=== PATIENT | female | born 1970 | race Caucasian/White ===

== ENCOUNTER 2025-03-06 08:14 | Emergency (ER) | payer BC, SELFPAY ==
[2025-03-06 08:18] VITALS: BP 164/103
[2025-03-06 08:31] VITALS: BP 127/93
--- NOTE | 2025-03-06 08:31 | ED.GENMED ---
History of Present Illness
General
Chief Complaint: Cardiac Symptoms
Time Seen by Provider: 03/06/25 08:31
History of Present Illness
History of Present Illness:
FOCUSED PAST MEDICAL HISTORY
- Hyperthyroidism
REVIEW OF OLD RECORDS
- No old records available for review in [facility]
Note:
CHIEF COMPLAINT(S)
Palpitations and elevated heart rate over the last four days.
HISTORY OF PRESENT ILLNESS
The patient is a 54-year-old female with a history of thyroid dysfunction currently on levothyroxine therapy, presenting with palpitations and feeling tachycardic intermittently for the past four days. She describes her condition as experiencing a
rapid heart rate of 140-160 beats per minute, even while at rest, which compelled her to seek evaluation. The patient is jazmyne-menopausal and has experienced symptoms such as hot flashes and night sweats but initially attributed the palpitations to
these menopausal symptoms. There is no notable chest tightness or pressure accompanying these episodes, and she denies recent caffeine intake. The patient has been on levothyroxine previously for thyroid dysfunction, noting occasional swings between
hyper and hypothyroid states. She does not take any medication currently for the heart rate, though she mentioned a past prescription for a beta-chelly when she was younger. She is not currently experiencing significant respiratory distress. An
electrocardiogram performed earlier indicated a sinus rhythm, although with slightly elevated rates.
PAST MEDICAL AND SURIGICAL HISTORY
The patient has a known history of thyroid dysfunction.
MEDICATIONS
Levothyroxine (Synthroid) for thyroid management.
REVIEW OF SYSTEMS
- Cardiovascular: Episodes of rapid heart rate at rest (140-160 bpm).
- General: Experiences hot flashes and night sweats, attributed to jazmnye-menopause.
- Respiratory: No dyspnea or difficulty breathing noted.
- Neurological: No signs of anxiety or stress-related triggers identified for heart rate elevation.
PHYSICAL EXAM
General: Alert, no acute distress.
Skin: Warm, dry.
Head: Normocephalic, atraumatic.
Neck: Supple, trachea midline.
Eyes, Ears, Nose, Mouth, and Throat: Oral mucosa moist.
Cardiovascular: Normal peripheral perfusion, No edema. Borderline tachycardic.
Respiratory: Respirations are non-labored.
Gastrointestinal: Abdomen nondistended.
Back: Normal range of motion, Normal alignment.
Musculoskeletal: Normal range of motion, normal strength.
Neurological: Alert and oriented to person, place, time, and situation, No focal neurological deficit observed.
Psychiatric: Cooperative, appropriate mood & affect.
PROBLEM LIST
Acute Problems:
- Palpitations
- Elevated heart rate
Chronic Problems:
- Thyroid dysfunction
PLAN
- Monitor the patients heart rate and rhythm while at the facility.
- Obtain blood work to evaluate thyroid function as a potential contributing factor to the elevated heart rate.
- Recommend keeping the patient on cardiac monitoring for further observation.
- Discuss the potential option of prescribing a beta-chelly if the symptoms persist or worsen, though the patient prefers avoiding additional medication if feasible.
DIFFERENTIAL DIAGNOSIS
The Differential Diagnosis includes, in no particular order and is not limited to:
- Thyrotoxicosis
- Atrial fibrillation or flutter
- Supraventricular tachycardia
- Anxiety disorder
- Menopausal symptoms exacerbation
- Pheochromocytoma
- Electrolyte imbalance
- Mitral valve prolapse
- Primary hypersensitivity syndrome
- Subclinical hyperthyroidism
EKG
- Sinus 106, no acute ST abnormality, no old to compare
LABS
- CBC and chemistries unremarkable, TSH normal
UPDATE
- Offered and consider beta-blockade however patient declines at this time
SUMMARY OF ENCOUNTER
The patient, a 54-year-old female with a history of thyroid dysfunction managing with levothyroxine, visited the emergency department with complaints of palpitations and elevated heart rate over the last four days. The patient reported intermittent
episodes with heart rates between 140-160 bpm at rest. She is jazmyne-menopausal and initially attributed symptoms to menopausal changes. No significant chest tightness, pressure, or recent caffeine intake. She previously had a prescription for a
beta-chelly but is not currently taking it. An ECG showed a sinus rhythm with slightly elevated heart rates. Blood tests indicated normal electrolyte levels and thyroid function (TSH was 1.84, within the normal range). Observations showed normal
sinus rhythm heart rate is 90s.
PLAN
The patient was advised that, although palpitations occur, these are not alarming based on current observations. Consideration to place the patient on medication to slow heart rate was discussed but not pursued due to potential effects on already
optimal blood pressure. It was recommended for the patient to consider consulting a cake froster for further evaluation. They were informed that the symptoms do not indicate an immediate cardiac event such as a heart attack, given the absence of
chest pain or pressure. Patient was stable and given the contact information for a cake froster for follow-up.
PATIENT EDUCATION AND COUNSELING
The patient was reassured about the normal findings of her blood work and ECG. She was informed about the nature of her palpitations, potential management strategies, and the importance of follow-up with a color specialist.
FOLLOW-UP INSTRUCTIONS
The patient was instructed to schedule a follow-up with a cake froster for further evaluation of her cardiac symptoms.
MEDICATION RECONCILIATION
No new medications were prescribed during this encounter. The patient is currently on levothyroxine for thyroid management.
MEDICAL DECISION MAKING
- Number and Complexity of Problems Addressed: Chronic conditions affecting care include thyroid dysfunction. Differential diagnoses considered were thyrotoxicosis, supraventricular tachycardia, anxiety disorder, menopause-related symptoms, and
subclinical hyperthyroidism.
- Data:
Category 1:
Reviewed patients lab results, which revealed normal electrolyte levels and thyroid function. ECG showed sinus rhythm with some extra beats but no significant arrhythmias.
Category 2:
Independent review of ECG showed normal sinus rhythm.
Category 3:
No specific discussion with other healthcare providers recorded during this encounter.
-Risk:
Prescription medication to lower heart rate was considered but not prescribed due to the patients stable condition and potential impact on blood pressure.
DIAGNOSIS
1. Palpitations - R00.2
2. Sinus Tachycardia - R00.0
3. Jazmyne-menopausal Symptoms - N95.1
Repeat blood pressure with systolic of 160 without intervention
Phy Exam
Physical Exam
Physical Exam:
See HPI.
Course
Orders/Labs/Results
Orders:
Orders
03/06/25 08:17
Electrocardiogram (*1) Urgent
Reason for Study: Palpitations
EKG- Treatment ONCE
03/06/25 08:44
Complete Blood Count/With Diff Urgent
Comprehensive Metabolic Panel Urgent
Magnesium Urgent
TSH Reflex To Free T4 Urgent
Abnormal Lab Results
03/06/25
08:44
Eosinophils % 10.5 H %
(0-6)
Glucose 105 H mg/dl
(70-99)
03/06/25 08:44
03/06/25 08:44
Vital Signs
Initial and Last Documented VS:
Initial Vital Signs
Temp Pulse Resp BP Pulse Ox
36.9 C 132 20 164/103 99
03/06/25 08:18 03/06/25 08:18 03/06/25 08:18 03/06/25 08:18 03/06/25 08:18
Last Documented Vital Signs
Temp Pulse Resp BP Pulse Ox
36.9 C 113 10 127/93 99
03/06/25 08:18 03/06/25 08:31 03/06/25 08:31 03/06/25 08:31 03/06/25 08:32
*Pulse Oximetry
SaO2: 99
Oxygen Mode of Delivery: Room air
Patient hypoxic: no
*Critical Care Note
Total Time (30-74mins, 75-104mins- exclusive of procedures): Not Applicable
ED Attending Note
-
Portions of this chart may have been created with voice recognition software.� Occasional wrong word or��sound alike� substitutions may have occurred due to the inherent limitations of voice recognition software.
Discharge Plan
Departure
Patient Disposition: Home (Routine Discharge)
Date of Disposition: 03/06/25
Time of Disposition: 10:03
Patient with high blood pressure during this ER visit?: Yes
Discharge Problem:
Palpitations
Instructions: Palpitations - ED (DC), BLOOD PRESSURE
Referrals:
Manny Vicente MD [Active, Cardiology]
Eileen Bryan DO [Family Provider]
Activity Restrictions/Additional Instructions:
Basic blood work including thyroid testing is all normal. Your EKG is normal. I recommend a follow-up with a cake froster such as Dr. Vicente. Return here if worse or concerns.
Interventions
Interventions:
*Risk Screen - Suicide Last Done: 03/06/25 08:18
*General Assessment Last Done: 03/06/25 09:20
*Neglect/Abuse Screening Last Done: 03/06/25 08:24
*ED- Fall Risk Assessment Last Done: 03/06/25 09:20
*ED COVID-19 Vaccine History Last Done: 03/06/25 09:20
*ED Influenza Vaccine History Last Done: 03/06/25 09:20
ED- Pulmonary Assessment Last Done: 03/06/25 09:20
ED- Cardiac Assessment Last Done: 03/06/25 09:20
Discharge Date and Time
Print Language: VIET[place]ESE
[2025-03-06 08:51] LABS: Hematocrit 41.8 % (37.0-47.0); Hemoglobin 14.0 g/dL (12.0-16.0); Mean Corp Hgb Conc. 33.5 g/dL (33.0-37.0); Mean Corpuscular Volume 92.1 fL (81.0-99.0); Nucleated Red Blood Cells % 0 %; Platelet Count 243 10^3/uL (130-400); Red Cell Dist. Width 12.8 % (11.5-14.5)
[2025-03-06 09:00] VITALS: BP 115/92
[2025-03-06 09:04] LABS: ALT (SGPT) 29 U/L (0-35); AST (SGOT) 23 U/L (14-36); Albumin 5.0 g/dl (3.5-5.0); Alkaline Phosphatase 42 U/L (38-126); Blood Urea Nitrogen 15 mg/dl (7-17); Calcium 9.9 mg/dl (8.4-10.2); Carbon Dioxide 28 mmol/L (22-30); Chloride 106 mmol/L (98-107); Glucose 105 mg/dl (70-99); Magnesium 2.0 mg/dl (1.6-2.3); Potassium 3.9 mmol/L (3.5-5.1); Sodium 141 mmol/L (135-145); Total Protein 7.8 g/dl (6.3-8.2); eGFR > 60.00
== END 2025-03-06 10:15 | disposition home or self-care (01) ==
LOC: EMR 08:14
PROVIDERS: EMERGENCY PHYSICIAN Emergency Medicine; FAMILY PHYSICIAN Family Medicine
DX: R00.2 Palpitations (principal); E03.9 Hypothyroidism, unspecified; E05.90 Thyrotoxicosis, unspecified without thyrotoxic crisis or storm; N95.1 Menopausal and female climacteric states; Z79.890 Hormone replacement therapy
CPT/HCPCS: 99283; 80053; 83735; 84443; 85025; 93005

== ENCOUNTER → 2025-05-15 15:48 | Outpatient (REF) | payer BC, SELFPAY | LOC: RCS 15:48 | PROVIDERS: ATTENDING PHYSICIAN Internal Medicine Cardiovascular Disease | DX: R00.0 Tachycardia, unspecified (principal); R00.2 Palpitations | CPT/HCPCS: 93306 ==